=== PATIENT | male | born 1975 | race Caucasian/White ===

== ENCOUNTER → 2018-04-19 13:30 | Outpatient (CLI) | payer BC, SELFPAY ==
--- NOTE | 2018-04-19 13:36 | VDLE_ITS ---
Reason For Study: Swelling RIGHT LEFT GSV is normal. CFV is compressible, spontaneous, phasic, CFV is compressible, spontaneous, phasic, competent, and demonstrates normal competent and demonstrates normal augmentation. augmentation. FV is compressible, spontaneous, phasic, FV is compressible, spontaneous, phasic, competent and demonstrates normal competent and demonstrates normal augmentation. augmentation. POP V is compressible, spontaneous, phasic, POP V is compressible, spontaneous, phasic, competent and demonstrates normal competent and demonstrates normal augmentation. augmentation. T/P Trunk is compressible. T/P Trunk is compressible. PTV is compressible. PTV is compressible. LT PerV is compressible. RT PerV is compressible. Lt SFJ is Competent Rt SFJ is Competent Lt GSV is Incompetent with reflux greater Rt GSV is Competent than 0.5 sec and a diameter of 0.67cm x 0.63cm in the thigh and 0.40cm x 0.37cm in Rt SSV is Competent. the calf Procedure Exam performed in department. Lt SSV is Competent. A preliminary report was called and/or faxed to Ernie Hayes. Interpretation Summary Deep veins of the lower extremities are bilaterally patent and compressible segmentally. There is no evidence of deep vein thrombosis on either side. Valvular competence appears intact within the proximal deep venous systems bilaterally. The greater saphenous veins appear bilaterally patent and compressible segmentally. Sapheno-femoral junctions are bilaterally competent . The right greater saphenous vein appears segmentally competent. The left greater saphenous vein appears segmentally incompetent. Small saphenous veins are patent and competent biaterally. Ordering Physician: ERNIE HAYES Referring Physician: Ernie Hayes Performed By: Victoria Pryor, ANDRZEJ, RVT
--- NOTE | 2018-04-20 16:12 | LEAS ---
Arterial Study - Arterial Study Arterial Study: This is a 43-year-old male with a history of hypertension, hyperlipidemia, and diabetes mellitus. Suspecting the presence of atherosclerotic peripheral arterial occlusive disease, the patient was brought to the noninvasive vascular laboratory at this time for the purpose of bilateral noninvasive lower extremity arterial assessment. Doppler signal assessment was used to evaluate the pulses at ankle level bilaterally. The posterior tibial and dorsalis pedis pulses were triphasic bilaterally. Segmental limb pressures were obtained bilaterally. The right ankle pressure, as determined by posterior tibial pulse, was measured at 152 mmHg. The right ankle pressure, as determined by dorsalis pedis pulse, was measured at 153 mmHg. The right digital pressure was measured at 140 mmHg. The left ankle pressure, as determined by posterior tibial pulse, was measured at 156 mmHg. The left ankle pressure, as determined by dorsalis pedis pulse, was measured at 159 mmHg. The left digital pressure was measured at 128 mmHg. Pulse-volume recordings were obtained bilaterally and segmentally. Waveform amplitudes appeared to be satisfactory at all levels bilaterally, including low thigh, calf, ankle, and digital levels. Resting ankle-brachial indices were calculated bilaterally. The resting right ankle-brachial index was calculated to be 1.16. The resting left ankle-brachial index was calculated to be 1.20. Digital-brachial indices were calculated bilaterally. The right digital-brachial index was calculated to be 1.06. The left digital-brachial index was calculated to be 0.97. Impression: Based upon the findings of this resting noninvasive lower extremity arterial study, there is no evidence of significant atherosclerotic peripheral arterial occlusive disease in the lower extremities bilaterally. Triphasic waveforms were noted at ankle level bilaterally. Resting ankle-brachial indices were bilaterally normal. Digital-brachial indices were also normal bilaterally. In summary, this represents a normal resting noninvasive lower extremity arterial study bilaterally.
--- NOTE | 2018-04-20 16:19 | LEAS_ITS ---
Arterial Study - Arterial Study Arterial Study: This is a 43-year-old male with a history of hypertension, hyperlipidemia, and diabetes mellitus. Suspecting the presence of atherosclerotic peripheral arterial occlusive disease, the patient was brought to the noninvasive vascular laboratory at this time for the purpose of bilateral noninvasive lower extremity arterial assessment. Doppler signal assessment was used to evaluate the pulses at ankle level bilaterally. The posterior tibial and dorsalis pedis pulses were triphasic bilaterally. Segmental limb pressures were obtained bilaterally. The right ankle pressure, as determined by posterior tibial pulse, was measured at 152 mmHg. The right ankle pressure, as determined by dorsalis pedis pulse, was measured at 153 mmHg. The right digital pressure was measured at 140 mmHg. The left ankle pressure, as determined by posterior tibial pulse, was measured at 156 mmHg. The left ankle pressure, as determined by dorsalis pedis pulse, was measured at 159 mmHg. The left digital pressure was measured at 128 mmHg. Pulse-volume recordings were obtained bilaterally and segmentally. Waveform amplitudes appeared to be satisfactory at all levels bilaterally, including low thigh, calf, ankle, and digital levels. Resting ankle-brachial indices were calculated bilaterally. The resting right ankle-brachial index was calculated to be 1.16. The resting left ankle- brachial index was calculated to be 1.20. Digital-brachial indices were calculated bilaterally. The right digital- brachial index was calculated to be 1.06. The left digital-brachial index was calculated to be 0.97. Impression: Based upon the findings of this resting noninvasive lower extremity arterial study, there is no evidence of significant atherosclerotic peripheral arterial occlusive disease in the lower extremities bilaterally. Triphasic waveforms were noted at ankle level bilaterally. Resting ankle-brachial indices were bilaterally normal. Digital-brachial indices were also normal bilaterally. In summary, this represents a normal resting noninvasive lower extremity arterial study bilaterally.
== END ==
PROVIDERS: Family Provider Nurse Practitioner; PCP Nurse Practitioner; Visit Provider Nurse Practitioner
DX: I73.9 Peripheral vascular disease, unspecified (principal); R60.0 Localized edema
CPT/HCPCS: 93923; 93970

== ENCOUNTER 2018-08-09 11:00 | Emergency (ER) | payer BC, SELFPAY ==
[2018-08-09 11:01] VITALS: BP 171/113; PULSE 90; RESP 18; TEMP 36.9; O2SAT 98; BMI 43.2
--- NOTE | 2018-08-09 11:18 | EKG12_ITS ---
Test Reason : PALPITATIONS Blood Pressure : / mmHG Vent. Rate : 090 BPM Atrial Rate : 090 BPM P-R Int : 160 ms QRS Dur : 094 ms QT Int : 366 ms P-R-T Axes : 051 039 054 degrees QTc Int : 447 ms Normal sinus rhythm Normal ECG Confirmed by LEONARDO ZUNIGA, PACO ([id number]), nanofabrication specialist ALICE BAIRES ([id number]) on 08/14/2018 12:31:34 PM Referred By: SHARIFA Confirmed By:PACO PATTRESON MD
--- NOTE | 2018-08-09 11:22 | RAD_ITS ---
STUDY: X-RAY CHEST REASON FOR EXAM: Male, 43 years old. Chest pain TECHNIQUE: Single AP portable view of the chest. COMPARISON: None. FINDINGS: The lungs are clear and expanded. There is no demonstrated pleural abnormality. Normal size heart. Normal mediastinum and kaylin. Normal visualized pulmonary arteries. Normal visualized aortic arch and descending thoracic aorta. Normal visualized thoracic spine. Normal visualized ribs, clavicles, and shoulders. There is no demonstrated abnormality of the visualized soft tissue structures of the upper abdomen. RAD/Chest 1 View (Portable) IMPRESSION: Normal x-ray examination of the chest. Electronically Signed: Stefan Abdi DO at 11:43 EDT Tel , Service support ,
[2018-08-09 11:25] VITALS: BP 158/82; PULSE 90; RESP 22; O2SAT 99
[2018-08-09 11:27] VITALS: O2SAT 99
[2018-08-09 11:51] LABS: Absolute Lymphocyte Count 2.34 X10^3/ul (0.83-4.51); Absolute Neutrophil Count 4.5 X10^3/uL (2.0-7.7); Basophil# 0.03 X10^3/uL; Basophil% 0.4 % (0-1); Eosinophils% 2.7 % (0-5); Hematocrit 49.7 % (40-54); Lymphocyte # 2.34 X10^3/ul (4.0); Lymphocyte % 31.3 % (19-41); Mean Corp Hgb Conc 32.2 g/gl (32-36); Mean Corpuscular Hgb 28.5 pg (27.0-32.0); Mean Corpuscular Volume 88.4 fL (80-94); Mean Platelet Vol. 9.8 fl (6.2-12.0); Monocyte# 0.43 X10^3/uL; Monocyte% 5.7 % (0-10); Neutrophil # 4.46 X10^3/uL (2.7-7.7); Neutrophil % 59.6 % (47-70); Platelet Count 224 K/mm3 (150-450); RBC Distribution Width CV 14.9 % (11.6-14.6); RBC Distribution Width SD 48.4 fl (35.1-43.9); Red Blood Count 5.62 M/mm3 (4.6-6.2); White Blood Count 7.5 K/mm3 (4.4-11.0)
--- NOTE | 2018-08-09 11:54 | ED.DCSUM_ITS ---
- ER Visit Summary Date of Service: 08/09/18 Chief Complaint: [] fever body aches palpitations History of Present Illness: The patient is a 43 M [] patient reports to feeling feverish having body aches for the last 24 hours and palpitations, he has had a slight cough minimal runny nose no sore throat no chest or abdominal pain 6 or paresthesias, he has a prior history for palpitations where his heart will race to 170, he has been evaluated for this in the past with extensive management by cardiology including cardiac echo nuclear stress test but sounds like a Holter and other cardiac monitoring studies are all negative. He has no history of A. fib SVT or V. tach he feels that his heart was racing but not to the 170 range, he is eating and drinking well bowel bladder habits are normal he is not been exposed anyone he is on blood pressure medicines otherwise has been feeling fine Physical Examination: [] On exam his vital signs are within normal range he is afebrile his heart rate is 80 he is in no distress head neck chest unremarkable the nose is slightly congested the neck is very supple the lungs are clear the heart tones are regular the abdomen is obese but soft nontender upper lower extremities unremarkable he is moving all 4 extremities his skin is normal his j oints are normal his back is normal his neurologic exam is entirely normal Test Results: [] Emergency Department Course and Treatment: [] EKG shows a sinus rhythm nothing acute, his labs chest x-ray unremarkable on the monitor in the department during his visit he was in a sinus rhythm with no palpitations, he understands his workup was unremarkable he is feeling better, he understands that he needs to follow-up with his outpatient providers for all the above and he is comfortable doing that return for change in symptoms Treatment Plan: [] Disposition: [] Home stable Impression: [] Reported febrile illness, palpitations history of same This note was generated with [employer] dictation software. It may contain incorrect words, spelling, and punctuation that were not noted in review of the chart prior to signing ED Disposition - Plan for ED Patient: Chief Complaint: Palpitations Referrals: Sheryl Kerr NP-C [Primary Care Provider] -
[2018-08-09] MEDS: 0.9% Normal Saline 1,000 ML 999 ML IV (11:58)
[2018-08-09 12:00] LABS: POSITIVE COUNT NO; POSITIVE DIFFERENTIAL NO; POSITIVE MORPHOLOGY NO
[2018-08-09 12:02] VITALS: BP 121/76; PULSE 79; RESP 13; O2SAT 99
[2018-08-09 12:04] LABS: Anion Gap 9 (5-15); BUN 18 mg/dL (7-18); BUN/Creat Ratio 16.4 RATIO (10-20); Calcium,Total 9.3 mg/dL (8.5-10.1); Chloride 102 mmol/L (98-107); EST Glomerular Filtration Rate 78 mL/min (>60); Est Glom Filt Rate - Afr Amer 94 mL/min (>60); Estimated Creatinine Clearance 92.22 ml/min; Glucose 164 mg/dL (74-106); Potassium 3.9 mmol/L (3.5-5.1); Sodium Level 138 mmol/L (136-145)
[2018-08-09 12:24] LABS: Bacteria 0 SEEN /hpf (None Seen); Mucous, Urine 0 SEEN /hpf (<or=2+); Red Blood Cells-Urine 0 SEEN /hpf (0-5); Squamous Epithelial Cells - UA 0 SEEN /hpf (0-5); White Blood Cells 0 SEEN /hpf (0-5)
[2018-08-09 12:26] LABS: Color, Urine Yellow (Yellow); Glucose, Dipstick Normal (Normal); Ketone-Dipstick Negative (Negative); Leukocyte Esterase-Dipstick Negative /ul (Negative); Nitrite-Dipstick Negative (Negative); Occult Blood-Urine Negative /ul (Negative); Protein-Dipstick Negative (Negative); Specific Gravity, Urine 1.015 (1.002-1.030); Urine Bilirubin Dipstick Negative (Negative); Urine Clarity Clear (Clear); Urine Urobilinogen Normal (Normal)
[2018-08-09 13:04] VITALS: BP 165/84; PULSE 73; RESP 14; O2SAT 99
--- NOTE | 2018-08-09 13:48 | ED.DEP ---
ED Disposition - Plan for ED Patient: Chief Complaint: Palpitations Instructions: ED Palpitations Referrals: Sheryl Kerr, ROBERT-C [Primary Care Provider] -
[2018-08-09 13:53] VITALS: BP 130/70; PULSE 73; RESP 14; O2SAT 98
--- NOTE | 2018-08-09 13:54 | ED.RN ---
REVIEWED D/C INSTRUCTIONS, FOLLOW UP CARE, AND S/S THAT WOULD WARRANT A RETURN TO THE ED WITH PT. PT VERBALIZED AN UNDERSTANDING AND DENIES FURTHER QUESTIONS FOR THIS RN. PT SKIN P/W/D, RESP EVEN AND UNLABORED, PT A&O X 3, NO DISTRESS NOTED. PT AMBULATED OUT OF ED, GAIT STEADY.
== END 2018-08-09 13:55 | disposition home or self-care (01) ==
LOC: ED 12:01
PROVIDERS: Emergency Provider Emergency Medicine; Family Provider Nurse Practitioner; PCP Nurse Practitioner
DX: R50.9 Fever, unspecified (principal); R00.2 Palpitations; Z79.82 Long term (current) use of aspirin; Z79.899 Other long term (current) drug therapy
CPT/HCPCS: 71045; 80048; 81001; 84484; 85025; 93005; 96360; 96361; 99284; J7030; A4216

== ENCOUNTER → 2019-01-23 11:15 | Outpatient (CLI) | payer BC, SELFPAY ==
[2018-11-27 16:09] VITALS: BMI 44.7
[2019-01-23 12:03] LABS: Absolute Lymphocyte Count 2.48 X10^3/ul (0.83-4.51); Basophil# 0.03 X10^3/uL; Basophil% 0.3 % (0-1); Eosinophil# 0.17 X10^3/uL; Eosinophils% 1.6 % (0-5); Hematocrit 47.3 % (40-54); Hemoglobin 15.3 g/dl (13.0-16.5); Lymphocyte # 2.48 X10^3/ul (4.0); Lymphocyte % 23.3 % (19-41); Mean Corp Hgb Conc 32.3 g/gl (32-36); Mean Corpuscular Hgb 28.5 pg (27.0-32.0); Mean Corpuscular Volume 88.2 fL (80-94); Mean Platelet Vol. 9.7 fl (6.2-12.0); Monocyte# 0.89 X10^3/uL; Monocyte% 8.4 % (0-10); Neutrophil # 7.03 X10^3/uL (2.7-7.7); Neutrophil % 66.1 % (47-70); Platelet Count 211 K/mm3 (150-450); RBC Distribution Width CV 14.5 % (11.6-14.6); RBC Distribution Width SD 46.5 fl (35.1-43.9); Red Blood Count 5.36 M/mm3 (4.6-6.2); White Blood Count 10.6 K/mm3 (4.4-11.0)
[2019-01-23 12:15] LABS: POSITIVE COUNT NO; POSITIVE DIFFERENTIAL NO; POSITIVE MORPHOLOGY NO
[2019-01-23 12:52] LABS: Anion Gap 7 (5-15); BUN 20 mg/dL (7-18); BUN/Creat Ratio 19.2 RATIO (10-20); Calcium,Total 9.4 mg/dL (8.5-10.1); Chloride 104 mmol/L (98-107); Creatinine, Serum 1.04 mg/dL (0.70-1.30); EST Glomerular Filtration Rate 83 mL/min (>60); Est Glom Filt Rate - Afr Amer 100 mL/min (>60); Glucose 126 mg/dL (74-106); Magnesium 2.1 mg/dL (1.6-2.6); Sodium Level 141 mmol/L (136-145); T4 Total, Thyroxin 10.5 ug/dL (4.5-12.1); Thyroid Stim Hormone (TSH) 0.78 uIU/mL (0.358-3.74)
== END ==
PROVIDERS: Family Provider Nurse Practitioner; PCP Nurse Practitioner; Referring Provider Nurse Practitioner Family; Visit Provider Nurse Practitioner Family
DX: R00.2 Palpitations (principal); R00.0 Tachycardia, unspecified; E03.9 Hypothyroidism, unspecified
CPT/HCPCS: 36415; 80048; 83735; 84436; 84443; 85025

== ENCOUNTER → 2019-01-23 | Outpatient (REF) | payer BC, SELFPAY ==
[2018-11-27 16:09] VITALS: BMI 44.7
== END | disposition home or self-care (01) ==
LOC: CVS 10:45
PROVIDERS: Family Provider Nurse Practitioner; PCP Nurse Practitioner; Referring Provider Internal Medicine Cardiovascular Disease; Visit Provider Internal Medicine Cardiovascular Disease
DX: R00.2 Palpitations (principal); R00.0 Tachycardia, unspecified
CPT/HCPCS: 93270

== ENCOUNTER → 2019-04-10 14:46 | Outpatient (CLI) | payer BC, SELFPAY ==
[2019-04-10 13:53] VITALS: BMI 46.7
[2019-04-10 15:22] LABS: Hematocrit 45.3 % (40-54); Hemoglobin 14.8 g/dl (13.0-16.5); Mean Corp Hgb Conc 32.7 g/gl (32-36); Mean Corpuscular Hgb 28.7 pg (27.0-32.0); Mean Platelet Vol. 9.7 fl (6.2-12.0); Platelet Count 220 K/mm3 (150-450); RBC Distribution Width CV 14.5 % (11.6-14.6); RBC Distribution Width SD 46.4 fl (35.1-43.9); Red Blood Count 5.15 M/mm3 (4.6-6.2)
[2019-04-10 15:31] LABS: Scan Indicated on CBC? Y/N NO
[2019-04-10 15:49] LABS: Anion Gap 8 (5-15); BUN 20 mg/dL (7-18); BUN/Creat Ratio 18.3 RATIO (10-20); Calcium,Total 9.2 mg/dL (8.5-10.1); Chloride 102 mmol/L (98-107); Creatinine, Serum 1.09 mg/dL (0.70-1.30); EST Glomerular Filtration Rate 78 mL/min (>60); Est Glom Filt Rate - Afr Amer 94 mL/min (>60); Glucose 85 mg/dL (74-106); Sodium Level 142 mmol/L (136-145)
== END ==
PROVIDERS: Family Provider Nurse Practitioner; PCP Nurse Practitioner; Referring Provider Internal Medicine Cardiovascular Disease; Visit Provider Internal Medicine Cardiovascular Disease
DX: R00.2 Palpitations (principal)
CPT/HCPCS: 36415; 80048; 85027

== ENCOUNTER 2019-04-16 08:47 | Day surgery (SDC) | payer BC, SELFPAY ==
[2018-11-27 16:09] VITALS: BMI 44.7
[2019-04-10 13:53] VITALS: BMI 46.7
[2019-04-13 08:37] VITALS: BMI 46.7
--- NOTE | 2019-04-16 10:02 | CL.IE_ITS ---
Patient: ALDO RIVERA Study Date: 04/16/2019 Performing: Giancarlo Alvarez MD : [id number] Age: 44 Gender: male PROCEDURES PERFORMED [id number] OF LOOP RECORDER INDICATIONS Palpitations and Dizziness PROCEDURE DETAILS The patient was brought to the Catheterization Lab in the postabsorptive nonsedated state. Infor med consent was obtained prior to the procedure. Local anesthetic was given subcutaneously to the le ft upper chest area with Lidocaine 2%. Incision was made to the left upper chest. ICM Loop Recorder w as inserted. Steri-strips applied to left subclavicular incision. The patient tolerated the procedur e well. Estimated Blood Loss: < 10 mls IMPLANTED / EX-PLANTED DEVICES IMPLANTED DEVICE(S): ICM Loop Recorder - Logistics Technician: [email or web address], Model # Reveal [id number] [id number] , Serial # [id number] DEVICE PARAMETERS CONCLUSIONS / RECOMMENDATIONS Device Conclusions: Successful implantation of a patient activated loop recorder. Device Recommendations: Follow up with Primary Care Physician PROCEDURE MEDICATIONS Versed 1 mg IV Oxygen: 2 L/min via nasal cannula Antibiotic given in appropriate timeframe. Ancef 2 Gm IV @ 04/16/2019 09:38:18 Signed By Giancarlo Alvarez MD On 04/16/2019 10:01:19 Giancarlo Alvarez MD
--- NOTE | 2019-04-16 10:33 | HP.PCM_ITS ---
History and Physical History of Present Illness ALDO RIVERA, is a 44 M who presents to the hospital today for a cardiovascular outpatient follow-up. He has a history of palpitations, diabetes, GERD, obstructive sleep apnea diagnosed on 03/17/2016 with compliant CPAP therapy, gout, hypertension, and thyroid disease. After his office appointment in March 2018 he was started on Cardizem. His atenolol was discontinued due to ongoing fatigue. It was titrated upwards to 240 mg a day due to palpitations. He recently underwent a 30-day event monitor which was negative. At his last visit, the patient has had occasional palpitations which last several minutes to an hour. Unfortunately we did not capture any of these on his 30-day event monitor. He is taking and tolerating his medicines well. He has noted that he gets more palpitations he goes long spells without exercising. He is here for an updated H&P for loop recorder implantation to try and diagnosis palpitations. Since his last visit, the patient has noted several episodes of palpitations, and noted that they are much less when he is exercising and in better shape. He denies any chest pain, shortness of breath, presyncope or syncope. 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 Financial Services Required: No Accompanied by: Is patient in pain?: No Allergies alprazolam [From Xanax] Allergy (Intermediate, Verified 04/10/19 13:59) depression mood changes iodine contrast Allergy (Severe, Uncoded 08/09/18 11:02) Unknown iv contrast Allergy (Severe, Uncoded 08/09/18 11:02) Anaphylaxis Medications aspirin 81 mg tablet,delayed release 81 mg PO QDAY 04/18/18 [History Confirmed 04/10/19] levothyroxine 100 mcg capsule 100 mcg PO QDAY 04/18/18 [History Confirmed 04/10/19] metformin 500 mg tablet 500 mg PO BID tab 04/18/18 [History Confirmed 04/10/19] Furosemide 40 mg PO QDAY PRN 08/09/18 [History Confirmed 04/10/19] esomeprazole magnesium 40 mg capsule,delayed release PO 30 Days #30 cap 10/30/18 [History Confirmed 04/10/19] diltiazem CD 240 mg capsule,extended release 24 hr 240 mg PO DAILY #90 cap 12/29/18 [Rx Confirmed 04/10/19] allopurinol 300 mg tablet 300 mg PO DAILY 04/10/19 [History Confirmed 04/10/19] [facility] Medical History HLD (hyperlipidemia) (Chronic) HTN (hypertension) (Chronic) Palpitations (Chronic) Dyspnea on exertion (Chronic) GERD (gastroesophageal reflux disease) (Acute) Gout (Acute) Polyp of esophagus (Acute) Obstructive sleep apnea (Chronic) Surgical History Polyp of colon (Resolved) Family History Other Colon cancer Social History (Updated 04/10/19 @ 14:24 by Ash Bullock MD) Smoking Status: Never smoker alcohol intake: never substance use type: does not use caffeine: Yes Type: tea Number of servings: 1 ROS Const Const: Positive for other (Is here for updated H&P for loop implant. Heart racing March 27 &); negative for fatigue, weakness, body ache, fever(s), headache(s), chills, frequent falls, night sweats, daytime sleepiness, difficulty sleeping, excessive sweating, weight gain, weight loss, increased appetite, poor appetite or anorexia Eyes Eyes: Negative for blind spots, loss of peripheral vision, transient loss of vision, blurry vision, change in vision, double vision, floaters, tunnel vision or other ENT ENT: Positive for dizziness (when has rapid palpitations); negative for headache(s), hearing loss, tinnitus, Nosebleed/epistaxis, balance problems, post nasal drip, lip swelling, tongue swelling, bleeding gums, hoarseness, neck pain, dry mouth or other Cardio Chest Pain: No Palpitations: Yes (Rapid palps with sweating that wipe me out, gets dizzy with them.) Edema: Bilateral (nonpitting) Muscle aches with walking: None Resp Respiratory: Negative for SOB with activity, SOB at rest, SOB orthopnea\SOB lying down, Cough, Coughing up blood/hemoptysis, chest congestion, pain on inspiration, snoring, stridor, wheezing, crackles, paroxysmal nocturnal dyspnea or other GI GI: Negative nausea, vomiting, heartburn, constipation, belching, bloating, cramping, vomiting blood/hematemesis, bright, red blood in stools, black,tarry stools, loose stools, Difficulty Swallowing or other : Negative for hematuria, frequent nighttime urination/ nocturia, erectile dysfunction or abnormal vaginal bleeding Musc Musc: Negative for muscle aches/ myalgia, muscle weakness, joint pain or balance problems Skin Skin: Negative redness, non-healing lesions, rash, unusual bruising, skin ulcer, wounds, jaundice or other Neuro Neuro: Positive for dizziness (when has rapid palpitations); negative for lightheadedness, near syncope, syncope, orthostatic symptoms, f requent falls, headache(s), weakness, confusion, memory loss, restless legs, blurry vision, double vision, vertigo, seizures, lack of coordination or other Zeferino Hematologic/Lymphatic: Negative for easy bleeding, easy bruising, enlarged lymph nodes or other Endo Endo: Negative for fatigue, cold intolerance, heat intolerance, excessive sweating, flushing, increased thirst/drinking, increased hunger, hair loss, hair growth or other Psych Psych: Negative for anxiety, depression, thoughts of harming anyone, thoughts of harming yourself, visual hallucinations, panic attacks or audible hallucinations Allergy Allergy/Immunology: Negative for throat swelling, Negative for tongue swelling, Negative for hives, Negative for rash, Negative for lip swelling Cardiology Exam Const Appearance: cooperative, healthy appearing and no acute distress Nutritional Appearance: well nourished Orientation: alert, oriented x3 and oriented to person Head Head: normal to inspection, normocephalic and atraumatic Nose: external nose normal Face and Sinus: face symmetric Mouth: oral mucosae normal Eyes General: appearance normal, both eyes and all related structures Eyelids: eyelids normal Conjunctivae: conjunctivae normal Pupils: PERRL and normal by confrontation EOM: EOM intact bilaterally Neck Neck: normal visual inspection and full ROM Carotids: normal carotid upstroke Chest Chest inspection: normal inspection of the chest Auscultation: Bilateral: Clear to Auscultation Cardio Palpation: normal PMI Rate: regular rate Rhythm: regular rhythm Heart sounds: S1 normal and S2 normal GI GI: normal to inspection, no hepatosplenomegaly and bowel sounds present Neuro General: alert, awake, oriented x3, CN's II-XI intact bilaterally and moves all extremities Skin Skin: no rashes or lesions noted Extremities Pulses: Normal: Right Femoral Pulse, Left Femoral Pulse, Right Dorsalis Pedis Pulse, Left Dorsalis Pedis Pulse, Right Posterior Tibial Pulse, Left Posterior Tibial Pulse, Right Radial Pulse, Left Radial Pulse Lower Extremity Edema: None: Bilateral Psych Psychological: normal affect Assessment & Plan 1. Palpitations R00.2 Plan 1. Palpitations: I recommended the patient continue his current medication is of diltiazem CD 240 mg p.o. daily as well as Lasix. In addition he is going to undergo a loop recorder implantation to try and get a diagnosis as to the source of his palpitations. I thoroughly explained to the patient and his significant other details regarding the loop recorder implantation, and all questions have been answered. Of also encouraged him to continue using his CPAP machine, and to ensure that his hypothyroidism is adequately controlled as this may promote palpitations as well. 2. Return office in 6-months. This note was generated using a voice recognition system and there may be incorrect words, spelling or punctuation that were not noted when reviewing the office note prior to saving. Orders 12 Lead EKG performed by BMS Today Patient seen and evaluated by me today. Agreeable to having an implantable loop recorder. Risk benefits alternatives presented to the patient who understands and agrees to proceed.
== END 2019-04-16 11:15 | disposition home or self-care (01) ==
PROVIDERS: Family Provider Nurse Practitioner; PCP Nurse Practitioner; Referring Provider Internal Medicine Cardiovascular Disease; Visit Provider Internal Medicine Cardiovascular Disease
DX: R00.2 Palpitations (principal); R42 Dizziness and giddiness; I10 Essential (primary) hypertension; E78.5 Hyperlipidemia, unspecified; K21.9 Gastro-esophageal reflux disease without esophagitis; G47.33 Obstructive sleep apnea (adult) (pediatric); M10.9 Gout, unspecified; E03.9 Hypothyroidism, unspecified; E11.9 Type 2 diabetes mellitus without complications; Z79.84 Long term (current) use of oral hypoglycemic drugs; Z79.82 Long term (current) use of aspirin; Z79.899 Other long term (current) drug therapy
CPT/HCPCS: 33285; 99152; J7040

== ENCOUNTER 2019-04-16 19:50 | Emergency (ER) | payer BC, SELFPAY ==
[2019-04-13 08:37] VITALS: BMI 46.7
[2019-04-16 19:54] VITALS: BP 159/87; PULSE 90; RESP 17; TEMP 36.7; O2SAT 96; BMI 101.4
--- NOTE | 2019-04-16 19:56 | EKG12_ITS ---
Test Reason : CP Blood Pressure : / mmHG Vent. Rate : 087 BPM Atrial Rate : 087 BPM P-R Int : 146 ms QRS Dur : 090 ms QT Int : 380 ms P-R-T Axes : 047 032 036 degrees QTc Int : 457 ms Normal sinus rhythm Normal ECG Confirmed by LEONARDO ZUNIGA, PACO ([id number]), scientific publications editor KAITLYN LACEY ([id number]) on 04/18/2019 7:57:42 AM Referred By: Giancarlo Alvarez Confirmed By:PACO PATTERSON MD
--- NOTE | 2019-04-16 20:07 | RAD_ITS ---
STUDY: X-RAY CHEST REASON FOR EXAM: Male, 44 years old. Chest pain TECHNIQUE: Single AP portable view of the chest. COMPARISON: August 09, 2018. FINDINGS: The lungs are clear and expanded. There is no demonstrated pleural abnormality. Normal size heart. Normal mediastinum and kaylin. Normal visualized pulmonary arteries. Normal visualized aortic arch and descending thoracic aorta. Normal visualized thoracic spine. Normal visualized ribs, clavicles, and shoulders. There is no demonstrated abnormality of the visualized soft tissue structures of the upper abdomen. RAD/Chest 1 View (Portable) IMPRESSION: Normal x-ray examination of the chest. Electronically Signed: Vic Bradshaw MD at 20:35 EDT , Service support ,
[2019-04-16] MEDS: Morphine 4 MG/ML Syringe IV (20:27)
--- NOTE | 2019-04-16 20:49 | RAD_ITS ---
STUDY: X-RAY CHEST REASON FOR EXAM: Male, 44 years old. Pain. TECHNIQUE: Single lateral view of the chest. COMPARISON: None. FINDINGS: There is implantable cardiac rhythm monitoring device in the subcutaneous soft tissues of the anterior chest. The lungs are clear and expanded. There is no demonstrated pleural abnormality. Normal size heart. Normal mediastinum and kaylin. Normal visualized pulmonary arteries. Normal visualized aortic arch and descending thoracic aorta. There are diffuse degenerative changes of the visualized thoracic spine. Normal visualized ribs, clavicles, and shoulders. There is no demonstrated abnormality of the visualized soft tissue structures of the upper abdomen. RAD/Chest 1 View IMPRESSION: Monitoring device in the soft tissues. No pneumothorax seen. Electronically Signed: Vic Bradshaw MD at 21:14 EDT , Service support ,
[2019-04-16 20:50] LABS: Absolute Lymphocyte Count 3.04 X10^3/ul (0.83-4.51); Absolute Neutrophil Count 5.7 X10^3/uL (2.0-7.7); Basophil# 0.02 X10^3/uL; Basophil% 0.2 % (0-1); Eosinophil# 0.31 X10^3/uL; Eosinophils% 3.1 % (0-5); Hematocrit 46.6 % (40-54); Hemoglobin 15.3 g/dl (13.0-16.5); Lymphocyte # 3.04 X10^3/ul (4.0); Lymphocyte % 30.1 % (19-41); Mean Corp Hgb Conc 32.8 g/gl (32-36); Mean Corpuscular Hgb 28.9 pg (27.0-32.0); Mean Corpuscular Volume 88.1 fL (80-94); Mean Platelet Vol. 10.2 fl (6.2-12.0); Monocyte# 1.01 X10^3/uL; Neutrophil # 5.67 X10^3/uL (2.7-7.7); Neutrophil % 56.2 % (47-70); Platelet Count 192 K/mm3 (150-450); RBC Distribution Width CV 14.8 % (11.6-14.6); RBC Distribution Width SD 47.3 fl (35.1-43.9); Red Blood Count 5.29 M/mm3 (4.6-6.2); White Blood Count 10.1 K/mm3 (4.4-11.0)
[2019-04-16 20:51] LABS: POSITIVE COUNT NO; POSITIVE DIFFERENTIAL NO; POSITIVE MORPHOLOGY NO
[2019-04-16 20:52] LABS: Anion Gap 4 (5-15); BUN 19 mg/dL (7-18); BUN/Creat Ratio 19.4 RATIO (10-20); Calcium,Total 9.2 mg/dL (8.5-10.1); Chloride 104 mmol/L (98-107); Creatinine, Serum 0.98 mg/dL (0.70-1.30); EST Glomerular Filtration Rate 89 mL/min (>60); Est Glom Filt Rate - Afr Amer 107 mL/min (>60); Estimated Creatinine Clearance 102.45 ml/min; Glucose 117 mg/dL (74-106); Sodium Level 138 mmol/L (136-145)
[2019-04-16 21:02] VITALS: PULSE 81; RESP 17; O2SAT 99
--- NOTE | 2019-04-16 21:32 | ED.DCSUM_ITS ---
- ER Visit Summary Date of Service: 04/16/19 Chief Complaint: Chest pain] History of Present Illness: The patient is a 44 M presents to the emergency department with chest pain. The patient had a loop recorder implanted by Dr. Alvarez today. States he had some mild pain after the procedure. Shortly thereaf ter, he began have some worsening pain. He states it hurts to touch. It also hurts to move his breaths. He called Dr. Alvarez and was referred into the emergency department. He is otherwise been in his normal state of health. Physical Examination: Vital signs reviewed General: Well-nourished, well-developed Head: Normocephalic, atraumatic Eyes: Pupils equal and reactive, extraocular muscles intact Neck, supple, no lymphadenopathy Heart: Regular rate and rhythm Respiratory: No distress, clear bilaterally, anterior chest wall tenderness at his implantation site, no crepitus Abdomen: Soft, nontender, nondistended, no peritoneal signs Back: Nontender Extremities: Nontender, no edema, no cords Skin: Normal color no rash Neuro: Alert and oriented, no focal or lateralizing deficits Test Results: [] Emergency Department Course and Treatment: I had already discussed the patient with Dr. Alvarez prior to his arrival. On arrival, the patient was evaluated by Dr. Vieyra. His EKG was unremarkable. Chest x-ray shows no pneumothorax. Labs are unremarkable. With analgesics, his pain was improved. At this point, I do feel this is likely postprocedural pain. I do not suspect a dangerous process. I do feel that he is safe for outpatient therapy. Patient is going to follow- up with cardiology tomorrow. Treatment Plan: [] Disposition: Discharge Impression: 1. Chest wall pain status post implantation of loop recorder This note was generated with [employer] software. It may contain incorrect words, spelling, and punctuation that were not noted in review of the chart prior to signing ED Disposition - Plan for ED Patient: Instructions: CHEST PAIN, NonCardiac Prescriptions: Hydrocodone Bitart/Apap 5-325 [[address] 5MG-325MG] 1 tab PO Q4H PRN PRN 1 Days #4 tab PRN Reason: Pain Prescription Printed Referrals: Sheryl Kerr NP-C [Primary Care Provider] -
[2019-04-16 21:57] VITALS: BP 144/71; PULSE 88; RESP 17; O2SAT 93
== END 2019-04-16 22:17 | disposition home or self-care (01) ==
LOC: ED 20:35
PROVIDERS: Emergency Provider Emergency Medicine; Family Provider Nurse Practitioner; PCP Nurse Practitioner
DX: R07.89 Other chest pain (principal); Z95.818 Presence of other cardiac implants and grafts; I10 Essential (primary) hypertension; Z79.82 Long term (current) use of aspirin; Z79.899 Other long term (current) drug therapy
CPT/HCPCS: 71045; 80048; 84484; 85025; 93005; 96374; 99284; A4216

== ENCOUNTER → 2019-06-05 22:37 | Outpatient (CLI) | payer BC, SELFPAY ==
[2019-06-05 18:31] VITALS: BMI 44.0
[2019-06-05 22:52] LABS: Absolute Neutrophil Count 6.6 X10^3/uL (2.0-7.7); Basophil# 0.05 X10^3/uL; Basophil% 0.5 % (0-1); Eosinophil# 0.14 X10^3/uL; Eosinophils% 1.4 % (0-5); Hematocrit 47.3 % (40-54); Hemoglobin 15.7 g/dL (13.0-16.5); Lymphocyte % 24.1 % (19-41); Mean Corp Hgb Conc 33.2 g/dL (32-36); Mean Corpuscular Hgb 29.2 pg (27.0-32.0); Mean Corpuscular Volume 88.1 fL (80-94); Mean Platelet Vol. 10.2 fl (6.2-12.0); Monocyte# 0.72 X10^3/uL; Monocyte% 7.2 % (0-10); NRBC Flagged by Analyzer 0 % (0-5); Neutrophil # 6.62 X10^3/uL (2.7-7.7); Neutrophil % 66.6 % (47-70); Platelet Count 248 K/mm3 (150-450); RBC Distribution Width CV 14.2 % (11.6-14.6); RBC Distribution Width SD 45.2 fl (35.1-43.9); Red Blood Count 5.37 M/mm3 (4.6-6.2)
[2019-06-05 23:14] LABS: AST(SGOT) 21 U/L (15-37); Alanine Aminotransfer ALT/SGPT 36 U/L (16-61); Albumin, Serum 4.4 g/dL (3.2-5.0); Alkaline Phosphatase 78 U/L (45-117); Anion Gap 7 (5-15); BUN 18 mg/dL (7-18); BUN/Creat Ratio 17.1 RATIO (10-20); Calcium,Total 9.6 mg/dL (8.5-10.1); Chloride 101 mmol/L (98-107); Cholesterol 205 mg/dL (200); Creatinine, Serum 1.05 mg/dL (0.70-1.30); EST Glomerular Filtration Rate 81 mL/min (>60); Est Glom Filt Rate - Afr Amer 99 mL/min (>60); Globulin 4.2 g/dL (2.2-4.2); Glucose 89 mg/dL (74-106); High Density Lipoprotein 37 mg/dL; Potassium 4.1 mmol/L (3.5-5.1); Protein, Total 8.6 g/dL (6.4-8.2); Sodium Level 136 mmol/L (136-145); Thyroid Stim Hormone (TSH) 0.79 uIU/mL (0.358-3.74); Triglycerides 121 mg/dL; Uric Acid 6.2 mg/dL (3.5-7.2); Very Low Density Lipoprotein 24 mg/dL (5-40)
== END ==
PROVIDERS: Family Provider Nurse Practitioner; PCP Nurse Practitioner; Visit Provider Nurse Practitioner
DX: E03.9 Hypothyroidism, unspecified (principal); E78.5 Hyperlipidemia, unspecified; I10 Essential (primary) hypertension; M10.9 Gout, unspecified
CPT/HCPCS: 80053; 80061; 84443; 84550; 85025

== ENCOUNTER → 2019-07-04 23:58 | Outpatient (CLI) | payer BC, SELFPAY ==
[2019-07-04 18:18] VITALS: BMI 43.4
== END ==
PROVIDERS: Family Provider Nurse Practitioner; PCP Nurse Practitioner; Referring Provider Nurse Practitioner; Visit Provider Nurse Practitioner
DX: N30.01 Acute cystitis with hematuria (principal); R35.0 Frequency of micturition
CPT/HCPCS: 87086

== ENCOUNTER → 2019-08-01 23:11 | Outpatient (CLI) | payer BC, SELFPAY ==
[2019-08-01 18:18] VITALS: BMI 43.4
== END ==
PROVIDERS: Family Provider Nurse Practitioner; PCP Nurse Practitioner; Referring Provider Nurse Practitioner; Visit Provider Nurse Practitioner
DX: R35.0 Frequency of micturition (principal); R10.9 Unspecified abdominal pain
CPT/HCPCS: 87086

== ENCOUNTER → 2020-02-15 09:10 | Outpatient (CLI) | payer BC, SELFPAY ==
[2019-10-22 17:17] VITALS: BMI 44.0
--- NOTE | 2020-02-15 09:12 | MRI_ITS ---
STUDY: MRA OF THE HEAD WITHOUT CONTRAST REASON FOR EXAM: Male, 45 years old. New onset of severe H/A''s, concern for aneurysm TECHNIQUE: 3-D [id number] (TOF) imaging was performed with MIPs. The study was performed unenhanced. COMPARISON: None. FINDINGS: Normal bilateral petrous carotid arteries. Normal right cavernous carotid artery with a normal supraclinoid bifurcation. Normal left cavernous carotid artery with a normal supraclinoid bifurcation. Normal right A1 segments of the anterior cerebral artery. Normal left A1 segments of the anterior cerebral artery. Normal intact anterior communicating artery (ACOM). Normal bilateral A2 segments of the anterior cerebral arteries. Normal right M1 and M2 segments of the middle cerebral arteries, with a normal M1 bifurcation. Normal left M1 and M2 segments of the middle cerebral arteries, with a normal M1 bifurcation. Normal right posterior communicating artery (PCOM). Normal left posterior communicating artery (PCOM). Normal bilateral vertebral arteries. Normal basilar artery with a normal basilar bifurcation. The visualized bilateral superior cerebellar (SCA) arteries are normal. Normal bilateral P1, P2 and visualized P3 segments of the posterior cerebral arteries. There is no demonstrated aneurysm of the [place]. There is no major vessel occlusion or hemodynamically significant stenosis. There is no demonstrated abnormality of the visualized brain. MRI/MRA Head ONLY without Contrast IMPRESSION: Normal MRA of the head Electronically Signed: Hawa Bansal, at 10:25 EDT Tel , Service support ,
--- NOTE | 2020-02-15 09:15 | RAD_ITS ---
STUDY: X-RAY - ORBITS REASON FOR EXAM: Male, 45 years old. CLEARANCE FOR MRI TECHNIQUE: 2 view(s) of the orbits were obtained. COMPARISON: None. FINDINGS: Normal bilateral orbits without a metallic orbital foreign body. Normal visualized facial bones. Normal paranasal sinuses. The soft tissue structures are unremarkable. RAD/Orbits for Foreign Body IMPRESSION: No demonstrated metallic orbital foreign body. The patient is cleared for an MRI examination. Electronically Signed: Husam Ruiz, at 9:47 EDT , Service support ,
== END ==
LOC: MRI 09:12
PROVIDERS: PCP Nurse Practitioner; Referring Provider Nurse Practitioner; Visit Provider Nurse Practitioner
DX: H53.8 Other visual disturbances (principal); G43.009 Migraine without aura, not intractable, without status migrainosus
CPT/HCPCS: 70030; 70544

== ENCOUNTER → 2020-07-03 | Outpatient (CLI) | payer BC, SELFPAY ==
[2020-07-03 15:22] VITALS: BMI 44.0
[2020-07-03 22:24] LABS: Absolute Lymphocyte Count 2.59 X10^3/uL (0.83-4.51); Absolute Neutrophil Count 5.9 X10^3/uL (2.0-7.7); Basophil# 0.06 X10^3/uL; Basophil% 0.6 % (0-1); Eosinophil# 0.13 X10^3/uL; Eosinophils% 1.4 % (0-5); Hematocrit 47.2 % (40-54); Hemoglobin 15.1 g/dL (13.0-16.5); Lymphocyte # 2.59 X10^3/ul (4.0); Lymphocyte % 27.7 % (19-41); Mean Corpuscular Hgb 28.6 pg (27.0-32.0); Mean Corpuscular Volume 89.4 fL (80-94); Mean Platelet Vol. 10.6 fl (6.2-12.0); Monocyte# 0.61 X10^3/uL; Monocyte% 6.5 % (0-10); NRBC Flagged by Analyzer 0 % (0-5); Neutrophil # 5.92 X10^3/uL (2.7-7.7); Neutrophil % 63.5 % (47-70); Platelet Count 250 K/mm3 (150-450); RBC Distribution Width CV 14.3 % (11.6-14.6); RBC Distribution Width SD 46.9 fl (35.1-43.9); Red Blood Count 5.28 M/mm3 (4.6-6.2); White Blood Count 9.3 K/mm3 (4.4-11.0)
[2020-07-03 22:42] LABS: ALB/GLOB Ratio 1.1 RATIO (0.9-2.4); AST(SGOT) 20 U/L (15-37); Alanine Aminotransfer ALT/SGPT 35 U/L (16-61); Albumin, Serum 4.1 g/dL (3.2-5.0); Alkaline Phosphatase 71 U/L (45-117); Anion Gap 6 (5-15); BUN 20 mg/dL (7-18); BUN/Creat Ratio 18.5 RATIO (10-20); Calcium,Total 9.7 mg/dL (8.5-10.1); Chloride 105 mmol/L (98-107); Cholesterol 207 mg/dL (200); Creatinine, Serum 1.08 mg/dL (0.70-1.30); EST Glomerular Filtration Rate 78 mL/min (>60); Est Glom Filt Rate - Afr Amer 95 mL/min (>60); Globulin 3.9 g/dL (2.2-4.2); Glucose 124 mg/dL (74-106); High Density Lipoprotein 41 mg/dL; Potassium 3.9 mmol/L (3.5-5.1); Sodium Level 140 mmol/L (136-145); Thyroid Stim Hormone (TSH) 1.88 uIU/mL (0.358-3.74); Triglycerides 151 mg/dL; Uric Acid 7.8 mg/dL (3.5-7.2); Very Low Density Lipoprotein 30 mg/dL (5-40)
== END | disposition home or self-care (01) ==
LOC: OLS.AHF 22:13 → LABSPEC 07-04 08:40
PROVIDERS: PCP Nurse Practitioner; Referring Provider Nurse Practitioner; Visit Provider Nurse Practitioner
DX: E78.5 Hyperlipidemia, unspecified (principal); M10.9 Gout, unspecified; I10 Essential (primary) hypertension; E03.9 Hypothyroidism, unspecified
CPT/HCPCS: 80053; 80061; 84443; 84550; 85025

== ENCOUNTER → 2021-07-07 | Outpatient (CLI) | payer BC, SELFPAY ==
[2021-07-07 22:10] LABS: Absolute Lymphocyte Count 2.25 X10^3/uL (0.83-4.51); Absolute Neutrophil Count 9.2 X10^3/uL (2.0-7.7); Basophil# 0.04 X10^3/uL; Basophil% 0.3 % (0-1); Eosinophil# 0.01 X10^3/uL; Eosinophils% 0.1 % (0-5); Hematocrit 49.7 % (40-54); Hemoglobin 16.2 g/dL (13.0-16.5); Lymphocyte # 2.25 X10^3/ul (0.83-4.51); Lymphocyte % 18.5 % (19-41); Mean Corp Hgb Conc 32.6 g/dL (32-36); Mean Corpuscular Volume 88.9 fL (80-94); Mean Platelet Vol. 10.2 fl (6.2-12.0); Monocyte# 0.57 X10^3/uL; Monocyte% 4.7 % (0-10); NRBC Flagged by Analyzer 0 % (0-5); Neutrophil # 9.22 X10^3/uL (2.7-7.7); Neutrophil % 75.8 % (47-70); Platelet Count 261 K/mm3 (150-450); RBC Distribution Width CV 14.2 % (11.6-14.6); RBC Distribution Width SD 45.3 fl (35.1-43.9); Red Blood Count 5.59 M/mm3 (4.6-6.2); White Blood Count 12.2 K/mm3 (4.4-11.0)
[2021-07-07 22:32] LABS: AST(SGOT) 17 U/L (15-37); Alanine Aminotransfer ALT/SGPT 38 U/L (16-61); Albumin, Serum 4.2 g/dL (3.2-5.0); Alkaline Phosphatase 71 U/L (45-117); Anion Gap 7 (5-15); BUN 21 mg/dL (7-18); BUN/Creat Ratio 22.1 RATIO (10-20); Calcium,Total 9.8 mg/dL (8.5-10.1); Chloride 105 mmol/L (98-107); Cholesterol 249 mg/dL (200); Creatinine, Serum 0.95 mg/dL (0.70-1.30); EST Glomerular Filtration Rate 91 mL/min (>60); Est Glom Filt Rate - Afr Amer 110 mL/min (>60); Globulin 4.4 g/dL (2.2-4.2); Glucose 107 mg/dL (74-106); High Density Lipoprotein 49 mg/dL; Potassium 4.3 mmol/L (3.5-5.1); Protein, Total 8.6 g/dL (6.4-8.2); Sodium Level 138 mmol/L (136-145); Thyroid Stim Hormone (TSH) 0.54 uIU/mL (0.358-3.74); Triglycerides 107 mg/dL; Uric Acid 5.9 mg/dL (3.5-7.2); Very Low Density Lipoprotein 21 mg/dL (5-40)
[2021-07-07 22:43] LABS: Hemoglobin A1c 5.6 % (3.8-5.6)
[2021-07-13 12:08] LABS: Testosterone, Free 10.42 ng/dL (5.00-21.00)
[2021-07-14 18:36] LABS: Testosterone, % Free 3.12 % (1.50-4.20); Testosterone, Total 334 ng/dL (264-916)
== END | disposition home or self-care (01) ==
PROVIDERS: PCP Nurse Practitioner; Visit Provider Nurse Practitioner
DX: I10 Essential (primary) hypertension (principal); E03.9 Hypothyroidism, unspecified; E11.9 Type 2 diabetes mellitus without complications; M10.9 Gout, unspecified; R79.89 Other specified abnormal findings of blood chemistry
CPT/HCPCS: 80053; 80061; 83036; 84402; 84403; 84443; 84550; 85025

== ENCOUNTER 2021-07-17 19:30 | Emergency (ER) | payer BC, SELFPAY ==
[2021-07-17 19:31] VITALS: BP 180/104; PULSE 98; RESP 18; TEMP 36.1; O2SAT 99; BMI 47.0
--- NOTE | 2021-07-17 20:40 | EKG12_ITS ---
Test Reason : CP Blood Pressure : / mmHG Vent. Rate : 083 BPM Atrial Rate : 083 BPM P-R Int : 154 ms QRS Dur : 092 ms QT Int : 398 ms P-R-T Axes : 054 031 012 degrees QTc Int : 467 ms Normal sinus rhythm Normal ECG Confirmed by LEONARDO ZUNIGA, PACO ([id number]), supervising editor trailer MATHEW CORRIGAN ([id number]) on 07/20/2021 11:39:20 AM Referred By: MARY Confirmed By:PACO PATTERSON MD
--- NOTE | 2021-07-17 20:41 | ED.VIS.CHEST ---
HPI History of Present Illness Chief Complaint: Chest Pain Detail of Chief Complaint: Chest pain that started around 4:30 PM Informant: patient Onset/Context/Timing Current Severity: 0/10 Narrative Narrative: Patient presents to the emergency department chief complaint of chest discomfort that started while sitting at a desk approximately 4:30 PM. Patient describes a pressure that radiates into his jaw and arm. No nausea or vomiting or shortness of breath associated with it. He is never had discomfort like this before. Patient states initially the pain lasted about an hour and then resolved and then its been coming and going since that time lasting only seconds. Patient denies recent travel or surgery. No family history of heart disease at a young age. Patient had a stress test he thinks about 3 years ago that was normal. He is never had a heart cath. Patient does have history of some tachycardia and has a loop recorder currently. Patient also has history of hypertension. Prior Similar Symptoms: No [facility] Medical History (Updated 07/17/21 @ 22:[address] Migue Reza, DO) Blurry vision, bilateral Dyspnea on exertion GERD (gastroesophageal reflux disease) Gout HLD (hyperlipidemia) HTN (hypertension) Hypothyroidism Migraine headache without aura Migraine without aura Multiple aneurysms of cerebral artery Nausea Obstructive sleep apnea Palpitations Pharyngitis Polyp of esophagus Home Medications esomeprazole magnesium 40 mg capsule,delayed release 40 mg PO DAILY 30 Days #30 cap 10/30/18 [History Last Taken Unknown] allopurinol 300 mg tablet 300 mg PO DAILY #90 tab 07/07/21 [Rx Last Taken Unknown] furosemide 40 mg tablet 40 mg PO QDAY PRN #90 tab 07/07/21 [Rx Last Taken Unknown] levothyroxine 100 mcg tablet 100 mcg PO DAILY #90 tab 07/07/21 [Rx Last Taken Unknown] metformin 500 mg tablet 500 mg PO BID #180 tab 07/07/21 [Rx Last Taken Unknown] amoxicillin 875 mg-potassium clavulanate 125 mg tablet 1 tab PO BID #20 tab 07/17/21 [Rx Last Taken Unknown] Allergy/AdvReac Type Severity Reaction Status Date / Time alprazolam [From Xanax] Allergy Intermediate depression Verified 07/17/21 21:21 mood changes iodine contrast Allergy Severe Unknown Uncoded 07/17/21 21:21 iv contrast Allergy Severe Anaphylaxis Uncoded 07/17/21 21:21 Family History Uncle Aneurysm cousins Mother Aneurysm Other Colon cancer Surgical History Polyp of colon Status post placement of implantable loop recorder (04/16/19) Social History (Updated 12/02/20 @ 12:10 by Sheryl Kerr NP, [employer]) Smoking Status: Current every day smoker tobacco type: smokeless tobacco alcohol intake: never substance use type: does not use caffeine: Yes Type: tea Number of servings: 1 ROS ROS ED Review of Systems ROS Unobtainable: other Constitutional Constitutional ED: Reports lethargy; Denies chills, fever(s), sweats or weight loss Eyes Eyes: Denies blurry vision, change in vision or diplopia ENT ENT ED: Denies rhinorrhea or sore throat Cardiovascular Cardiovascular: Reports chest pain; Denies orthopnea, palpitations or racing heartbeat Respiratory/Chest Respiratory/Chest: Reports dyspnea and dyspnea on exertion; Denies cough, orthopnea or sputum Gastrointestinal Gastrointestinal: Denies abdominal pain, diarrhea, nausea or vomiting Genitourinary Genitourinary ED: Denies dysuria, hematuria or urinary frequency Musculoskeletal Musculoskeletal: Denies arthralgias, back pain, myalgias or neck pain Integumentary Denies abscess, Abrasions or rash Neurologic Neurologic: Denies headache(s) or weakness Psychiatric Psychiatric: Denies anxiety, depression or suicidal thoughts Endocrine Endocrinology: Denies polydipsia, polyphagia or polyuria Hematologic/Lymphatic Hematologic/Lymphatic: Denies easy bleeding, easy bruising or lymphadenopathy Allergic/Immunologic Allergic/Immunologic ED: Denies mouth swelling, tongue swelling or urticaria EXAM Physical Exam Const Vital Signs: 07/17/21 19:31 07/17/21 21:20 07/17/21 21:23 Temperature 97 F L Temperature Source Temporal Pulse Rate 98 Respiratory Rate 18 Respiratory Effort Normal Non-Labored Blood Pressure 180/104 H Blood Pressure Mean 129 Pulse Ox 99 Oxygen Delivery Method Room Air Room Air 07/17/21 21:24 Temperature Temperature Source Pulse Rate 70 Respiratory Rate 20 H Respiratory Effort Blood Pressure 148/90 H Blood Pressure Mean 109 Pulse Ox 97 Oxygen Delivery Method Room Air Positive well nourished and well developed General Appearance ED: well developed and NAD HEENT Reports TM's clear and moist mucous membranes normocephalic and atraumatic; Negative for trauma or tenderness Tympanic Membrane ED: Yes TM's clear Eyes PERRL and EOMs intact bilaterally General Eye ED: Negative for pale conjunctiva or scleral icterus Neck no lymphadenopathy, supple and no JVD General: Negative for tenderness Chest Wall inspection of chest normal and palpation of chest normal Chest: Negative for tenderness Resp normal respiratory effort and clear to auscultation bilaterally Effort and Inspection: Negative for respiratory distress or pain with movement Auscultation: Negative for rhonchi, wheezes or diminished lung sounds Cardio regular rate, regular rhythm, S1 normal heart sound, S2 normal heart sound and no murmurs Peripheral Pulses: pulses 2+ throughout GI normal to inspection, nondistended, normoactive bowel sounds, soft to palpation, non-tender, non-distended and no masses Back/Spine no CVA tenderness and no thoracic nor lumbar tenderness Extremity normal to inspection General Extremety ED: Negative for edema General Extremity: Negative for edema Neuro oriented x3, CN's II-XII intact bilaterally, no sensory deficits noted and gait normal Sensorium / Orientation: awake, alert, oriented to person, oriented to place and oriented to time Motor Exam: strength 5/5 throughout and strength abnormal Psych mental status grossly normal Skin no rashes or lesions noted and no wounds Heart Score History: Slightly/Non-Suspicious ECG: Normal Age: >45 - <65 years Risk Factors: 1 or 2 Risk Factors Troponin: </= Normal Limit Score: 2 MDM MDM MDM Narrative Medical decision making narrative: IV line established on arrival. Patient was placed on a school bus monitor. Patient received aspirin. Patient had no further chest discomfort while in the department. His work-up in the department is normal. His heart score is a 2. I feel patient is low risk for acute coronary syndrome. I discussed obtaining a delta troponin although he had had pain for over 4 hours on arrival to the emergency department and his high-sensitivity troponin was normal. Patient does not want to wait the 2 hours and would prefer to go home. Patient advised to return if worsening pain, increasing shortness of breath, exertional dyspnea, or conditions worsen anyway. Lab Data Attestation: I reviewed the patient's lab results. Labs: Laboratory Results - last 24 hr 07/17/21 07/17/21 21:00 21:00 WBC 9.1 RBC 5.12 Hgb 14.9 Hct 45.7 MCV 89.3 MCH 29.1 MCHC 32.6 RDW Std Deviation 46.4 H RDW Coeff of Tali 14.3 Plt Count 212 MPV 10.1 Immature Gran % (Auto) 0.400 Neut % (Auto) 54.7 Lymph % (Auto) 32.1 Weber % (Auto) 9.8 Eos % (Auto) 2.6 Baso % (Auto) 0.4 Absolute Neuts (auto) 5.0 Absolute Lymphs (auto) 2.92 Nucleated RBC % 0 Sodium 140 Potassium 3.8 Chloride 108 H Carbon Dioxide 28.0 Anion Gap 4 L BUN 22 H Creatinine 0.95 Estim Creat Clear Calc 103.48 Est GFR (MDRD) Af Amer 109 Est GFR (MDRD) Non-Af 90 BUN/Creatinine Ratio 23.1 H Glucose 111 H Calcium 9.6 Troponin I High Sens 6 Radiography Chest X-Ray - ED: 1 View Diagnostic Testing: Radiology Impression Chest X-Ray 07/17/21 21:05 IMPRESSION: No acute radiographic abnormalities. Electronically Signed: Brian Waite MD at 21:51 EDT Tel , Service support , 1 view chest x-ray obtained interpreted by myself as no acute disease process. EKG Initial EKG: Attestation: I personally reviewed and interpreted this EKG as follows: Comments: Sinus rhythm with a ventricular rate of 83 bpm with no acute ST segment changes Discharge Plan Triage Chief Complaint: Chest Pain ED Provider: Migue Reza Dx/Rx/DC Orders Clinical Impression: Chest pain Instructions: ED Chest Pain, Uncertain Cause Prescriptions: No Action esomeprazole magnesium 40 mg capsule,delayed release(DR/EC) 40 mg PO DAILY 30 Days Qty: 30 RF: 0 allopurinol 300 mg tablet 300 mg PO DAILY Qty: 90 RF: 3 furosemide 40 mg tablet 40 mg PO QDAY PRN (Reason: Swelling) Qty: 90 RF: 3 metformin 500 mg tablet 500 mg PO BID Qty: 180 RF: 3 levothyroxine 100 mcg tablet 100 mcg PO DAILY Qty: 90 RF: 3 amoxicillin-pot clavulanate 875-125 mg tablet 1 tab PO BID Qty: 20 RF: 0 Primary Care Provider: Sheryl Kerr NP Referrals: Sheryl Kerr [employer], [employer] [Primary Care Provider] - 3-5 Days Disposition Disposition: Home, Self Care
--- NOTE | 2021-07-17 21:05 | RAD_ITS ---
INDICATION: chest pain EXAMINATION/TECHNIQUE: X-RAY - XR Chest 1 View COMPARISON: None. FINDINGS: The lungs are clear. The cardiomediastinal silhouette is unremarkable. No pleural effusion or pneumothorax. No acute osseous abnormalities. RAD/Chest 1 View (Portable) IMPRESSION: No acute radiographic abnormalities. Electronically Signed: Brian Waite MD at 21:51 EDT Tel , Service support ,
[2021-07-17 21:14] LABS: Absolute Lymphocyte Count 2.92 X10^3/uL (0.83-4.51); Basophil# 0.04 X10^3/uL; Basophil% 0.4 % (0-1); Eosinophil# 0.24 X10^3/uL; Eosinophils% 2.6 % (0-5); Hematocrit 45.7 % (40-54); Hemoglobin 14.9 g/dL (13.0-16.5); Lymphocyte # 2.92 X10^3/ul (0.83-4.51); Lymphocyte % 32.1 % (19-41); Mean Corp Hgb Conc 32.6 g/dL (32-36); Mean Corpuscular Hgb 29.1 pg (27.0-32.0); Mean Corpuscular Volume 89.3 fL (80-94); Mean Platelet Vol. 10.1 fl (6.2-12.0); Monocyte# 0.89 X10^3/uL; Monocyte% 9.8 % (0-10); NRBC Flagged by Analyzer 0 % (0-5); Neutrophil # 4.98 X10^3/uL (2.7-7.7); Neutrophil % 54.7 % (47-70); Platelet Count 212 K/mm3 (150-450); RBC Distribution Width CV 14.3 % (11.6-14.6); RBC Distribution Width SD 46.4 fl (35.1-43.9); Red Blood Count 5.12 M/mm3 (4.6-6.2); White Blood Count 9.1 K/mm3 (4.4-11.0)
[2021-07-17] MEDS: 0.9% Normal Saline 1,000 ML 150 ML IV (21:18)
[2021-07-17] MEDS: Aspirin 81 MG TAB.CHEW 324 MG PO (21:18)
[2021-07-17 21:24] VITALS: BP 148/90; PULSE 70; RESP 20; O2SAT 97
[2021-07-17 21:33] LABS: Anion Gap 4 (5-15); BUN 22 mg/dL (7-18); BUN/Creat Ratio 23.1 RATIO (10-20); Calcium,Total 9.6 mg/dL (8.5-10.1); Chloride 108 mmol/L (98-107); Creatinine, Serum 0.95 mg/dL (0.70-1.30); EST Glomerular Filtration Rate 90 mL/min (>60); Est Glom Filt Rate - Afr Amer 109 mL/min (>60); Estimated Creatinine Clearance 103.48 ml/min; Glucose 111 mg/dL (74-106); Potassium 3.8 mmol/L (3.5-5.1); Sodium Level 140 mmol/L (136-145); Troponin-I HS 6 pg/mL (3.0-78.0)
[2021-07-17 22:19] VITALS: BP 135/84; PULSE 66; RESP 16; O2SAT 99
== END 2021-07-17 22:20 | disposition home or self-care (01) ==
PROVIDERS: Emergency Provider Emergency Medicine; PCP Nurse Practitioner
DX: R07.9 Chest pain, unspecified (principal); I10 Essential (primary) hypertension; E78.5 Hyperlipidemia, unspecified; E03.9 Hypothyroidism, unspecified; F17.290 Nicotine dependence, other tobacco product, uncomplicated; Z79.899 Other long term (current) drug therapy
CPT/HCPCS: 71045; 80048; 84484; 85025; 93005; 96360; 99285; J7030

== ENCOUNTER 2022-01-11 21:27 | Outpatient (CLI) | payer BC, SELFPAY ==
[2022-01-11 21:38] LABS: Absolute Lymphocyte Count 2.78 X10^3/uL (0.83-4.51); Absolute Neutrophil Count 7.8 X10^3/uL (2.0-7.7); Basophil# 0.04 X10^3/uL; Basophil% 0.3 % (0-1); Eosinophil# 0.13 X10^3/uL; Eosinophils% 1.1 % (0-5); Hematocrit 45.3 % (40-54); Hemoglobin 15.2 g/dL (13.0-16.5); Lymphocyte # 2.78 X10^3/ul (0.83-4.51); Lymphocyte % 23.9 % (19-41); Mean Corp Hgb Conc 33.6 g/dL (32-36); Mean Corpuscular Hgb 29.3 pg (27.0-32.0); Mean Corpuscular Volume 87.5 fL (80-94); Mean Platelet Vol. 10.2 fl (6.2-12.0); Monocyte% 6.9 % (0-10); NRBC Flagged by Analyzer 0 % (0-5); Neutrophil # 7.83 X10^3/uL (2.7-7.7); Neutrophil % 67.3 % (47-70); Platelet Count 236 K/mm3 (150-450); RBC Distribution Width CV 14.1 % (11.6-14.6); RBC Distribution Width SD 44.9 fl (35.1-43.9); Red Blood Count 5.18 M/mm3 (4.6-6.2); White Blood Count 11.6 K/mm3 (4.4-11.0)
[2022-01-11 21:46] LABS: Uric Acid 5.1 mg/dL (3.5-7.2)
== END 2022-01-11 23:59 | disposition home or self-care (01) ==
PROVIDERS: PCP Nurse Practitioner; Visit Provider Nurse Practitioner
DX: M25.571 Pain in right ankle and joints of right foot (principal); M10.9 Gout, unspecified
CPT/HCPCS: 84550; 85025

== ENCOUNTER 2022-01-12 09:14 | Outpatient (CLI) | payer BC, SELFPAY ==
--- NOTE | 2022-01-12 09:26 | RAD_ITS ---
EXAM: XR RIGHT ANKLE COMPLETE, 3 OR MORE VIEWS : 1975 CLINICAL INDICATION: R ankle pain TECHNIQUE: Frontal, lateral and oblique views of the right ankle. This report was created using [employer] report generation technology. COMPARISON: None. FINDINGS: BONES/JOINTS: Unremarkable. No acute fracture. No subluxation. Normal alignment. Preservation of the joint space. No sclerotic or destructive changes observed. SOFT TISSUES: Unremarkable. No soft tissue swelling or gas. No radiopaque foreign body. RAD/Ankle min 3 Views IMPRESSION: Negative right ankle x-rays. at 1532 Reported and signed by: Andrew Zheng MD Electronically Signed: Andrew Zheng MD at 15:31 EDT ,
== END 2022-01-12 23:59 | disposition home or self-care (01) ==
LOC: RAD 09:15
PROVIDERS: PCP Nurse Practitioner; Referring Provider Nurse Practitioner; Visit Provider Nurse Practitioner
DX: M25.571 Pain in right ankle and joints of right foot (principal); M10.9 Gout, unspecified
CPT/HCPCS: 73610

== ENCOUNTER → 2022-08-04 | Outpatient (CLI) | payer BC, SELFPAY ==
[2022-08-04 22:03] LABS: Absolute Neutrophil Count 7.2 X10^3/uL (2.0-7.7); Basophil# 0.06 X10^3/uL; Basophil% 0.5 % (0-1); Eosinophil# 0.11 X10^3/uL; Hematocrit 45.7 % (40-54); Lymphocyte % 28.2 % (19-41); Mean Corp Hgb Conc 32.8 g/dL (32-36); Mean Corpuscular Hgb 29.1 pg (27.0-32.0); Mean Corpuscular Volume 88.6 fL (80-94); Mean Platelet Vol. 10.1 fl (6.2-12.0); Monocyte# 0.79 X10^3/uL; NRBC Flagged by Analyzer 0 % (0-5); Neutrophil # 7.15 X10^3/uL (2.7-7.7); Neutrophil % 62.9 % (47-70); Platelet Count 247 K/mm3 (150-450); RBC Distribution Width CV 14.2 % (11.6-14.6); RBC Distribution Width SD 45.9 fl (35.1-43.9); Red Blood Count 5.16 M/mm3 (4.6-6.2); White Blood Count 11.4 K/mm3 (4.4-11.0)
[2022-08-04 22:20] LABS: AST(SGOT) 21 U/L (15-37); Alanine Aminotransfer ALT/SGPT 39 U/L (16-61); Albumin, Serum 4.3 g/dL (3.2-5.0); Alkaline Phosphatase 79 U/L (45-117); BUN 27 mg/dL (7-18); Calcium,Total 9.7 mg/dL (8.5-10.1); Cholesterol 204 mg/dL (200); Creatinine, Serum 1.23 mg/dL (0.70-1.30); EST Glomerular Filtration Rate 67 mL/min (>60); Est Glom Filt Rate - Afr Amer 81 mL/min (>60); Globulin 4.1 g/dL (2.2-4.2); Glucose 106 mg/dL (74-106); Protein, Total 8.4 g/dL (6.4-8.2); Triglycerides 87 mg/dL
[2022-08-04 22:21] LABS: Anion Gap 9 (5-15); Chloride 107 mmol/L (98-107); High Density Lipoprotein 47 mg/dL; Potassium 3.7 mmol/L (3.5-5.1); Sodium Level 138 mmol/L (136-145); Thyroid Stim Hormone (TSH) 2.33 uIU/mL (0.358-3.74); Very Low Density Lipoprotein 17 mg/dL (5-40)
[2022-08-04 22:41] LABS: Hemoglobin A1c 5.6 % (3.8-5.6)
== END | disposition home or self-care (01) ==
PROVIDERS: PCP Nurse Practitioner; Visit Provider Nurse Practitioner
DX: I10 Essential (primary) hypertension (principal); E11.9 Type 2 diabetes mellitus without complications; E78.5 Hyperlipidemia, unspecified; E03.9 Hypothyroidism, unspecified
CPT/HCPCS: 80053; 80061; 83036; 84443; 85025

== ENCOUNTER → 2022-09-06 | Outpatient (CLI) | payer BC, SELFPAY ==
[2022-09-06 14:22] LABS: Amphetamine Urine VISTA NEGATIVE (<1000 ng/mL); Barbiturate Urine VISTA NEGATIVE (< 200 ng/mL); Benzodiazepine Urine VISTA NEGATIVE (< 200 ng/mL); Cocaine Urine VISTA NEGATIVE (< 300 ng/mL); Ecstacy Urine VISTA NEGATIVE (< 500 ng/mL); Methadone Urine VISTA NEGATIVE (< 300 ng/mL); PCP Urine VISTA NEGATIVE (< 25 ng/mL); THC Urine VISTA NEGATIVE (< 50 ng/mL); Vista UDS pH Range 6
== END | disposition home or self-care (01) ==
PROVIDERS: PCP Nurse Practitioner; Referring Provider Anesthesiology Pain Medicine; Visit Provider Anesthesiology Pain Medicine
DX: F11.20 Opioid dependence, uncomplicated (principal)
CPT/HCPCS: 80307

== ENCOUNTER 2022-09-27 12:00 | Outpatient (RCR) | payer BC, SELFPAY ==
--- NOTE | 2022-09-13 16:25 | HP.PTEVAL ---
Patient's Visit Information ALDO RIVERA is a 47 year old M referred to Physical Therapy by Dr. Law Rios MD with a diagnosis of LOW BACK PAIN. Date of Evaluation: 09/13/22 Physical Therapist: Yaya Wagner PT, Cert MDT, OCS - Visit Plan Frequency: 2x /Week Duration: 4 Weeks Plan: PT INTERVENTION SASHA EX'S .ANR STRETCHING ,PROGRESS TO POSTURAL EX'S ,DLS AND MODALTIES PRN - Subjective This 47 y/o male presents to physical therapy with low back pain. Patient has had back pain~ 20 years intermittent . Most recently developed episode pain unable to get OOB .Patient has occasional left leg pain. Initially, seen family DR recommended chiropractors did x-rays DDD ,then had MRI showed HNP .Then seen DR Bullock not bad enough too have surgery. Patient then was recommended pain management ,did epidural injection helped some. Patient was prescribed Vicodin. Pain management recommended. Also ,want to try aplasia. Patient pain left lumbar described knive and ache. Aggravating factors bending ,lifting, sitting ,standing . Alleviating rest some walking extension better. Coughing/sneezing +. Bowel/bladder -. Pain affects sleeping. Patient has no trauma. Patient pain affects QOL and function. SOCIAL: . VOACTION: [employer] - Pain Left Back Pain Intensity (Out of 10): 3 Pain Intensity Range: 10 - Objective POSTURE:WFL. NEURO: denies paresthesia/tingling ,reflexes L3-4,L4-5,L5-S1 2/3 ,+ ANR left. GAIT: reciprocal pattern. MMT: quads/hams 4/5 ,hip flexion left 4-/5 ,right 4/5 ,ankle 5/5. LUMBAR ROM: flexion mod /severe loss ,extension min loss ,side glides min loss. FLEXABLITY : mod loss left with + ANR left - Special Tests L/S Slump test left side: Positive L/S Slump test right side: Negative L/S Left Straight Leg Raise: Positive L/S Right Straight Leg Raise: Negative Lumbar Standing: Flexion - Mechanical Response: No effect Lumbar Standing: Flexion - Symptoms During Testing: Increases Lumbar Standing: Flexion - Symptoms After Testing: Worse Lumbar Standing: Extension - Mechanical Response: No effect Lumbar Standing: Extension - Symptoms During Testing: Decreases Lumbar Standing: Extension - Symptoms After Testing: Better Lumbar Standing: Right Side Glides - Mechanical Response: No effect Lumbar Standing: Right Side [place] - Symptoms During Testing: No effect Lumbar Standing: Right Side [place] - Symptoms After Testing: No effect Lumbar Standing: Left Side [place] - Mechanical Response: No effect Lumbar Standing: Left Side [place] - Symptoms During Testing: No effect Lumbar Standing: Left Side [place] - Symptoms After Testing: No effect Lumbar Lying: Flexion - Mechanical Response: No effect Lumbar Lying: Flexion - Symptoms During Testing: Increases Lumbar Lying: Flexion - Symptoms After Testing: Worse Lumbar Lying: Extension - Mechanical Response: No effect Lumbar Lying: Extension - Symptoms During Testing: Decreases Lumbar Lying: Extension - Symptoms After Testing: Better - Balance/Special Test Scores Oswestry Low Back Score: 30 - Goals Goal 1:: I with HEP for LBP Goal Time Frame: 4-6 Weeks Goal 2:: Patient to improve posture/body mechanics 90% of the time to manage back pain Goal Time Frame: 4-6 Weeks Goal 3:: Patient to demonstrate 50% improvement with decrease symptoms and improved function Goal Time Frame: 4-6 Weeks Goal 4:: Patient to improve lumbar ROM for function of recovery to lift appropriately Goal Time Frame: 4-6 Weeks Goal 5:: Patient to improve back oswestry score by 5 points or > to improve function Goal Time Frame: 4-6 Weeks Goal 6:: Resolve ANR to tie shoes for function of recovery Goal Time Frame: 4-6 Weeks - Rehabilitation Potential Physical Therapy Diagnosis: This patient has low back pain with derangement below knee with HNP worse with flexion ,sitting ,position ,movement testing influences symptoms better walking and extension thus benefit from skilled PT Rehabilitation Potential: Good - Anticipated Interventions Patient/Client Instruction: Educate patient on: Condition, Plan of Care For the Purpose of:: To decrease pain, To increase ROM, To improve muscle performance and motor function, To improve ability to perform ADL's, To increase tolerance to activity/condition/position, To improve ability of physical actions for home/community/work/leisure, To improve health of tissue, To decrease soft tissue restriction, To increase flexibility/ROM, To improve endurance, To prevent re-injury Therapeutic Exercise to Include: Strength training, Endurance training, Body mechanics, Postural training, Flexibilty training, Active ROM, Dynamic Lumbar Stabilization, Sasha Exercises For the Purpose of:: To decrease pain, To increase ROM, To improve muscle performance and motor function, To increase tolerance to activity/condition/position, To improve ability of physical actions for home/community/work/leisure, To improve health of tissue, To decrease soft tissue restriction, To increase flexibility/ROM, To prevent re-injury TENS: Yes IF ES: Yes Cryotherapy (ice pack, ice massage): Yes Thermo therapy (hot pack): Yes Ultrasound (thermal/non thermal): Yes For the Purpose of:: To decrease pain, To increase ROM, To improve nutrient delivery to tissue, To increase oxygenation perfusion, To improve muscle performance and motor function, To improve health of tissue, To decrease soft tissue restriction Thank you for the opportunity to evaluate your patient. For Medicare and Medicare HMO plans, please review the plan of care and approve it. It will need to be FAXED BACK to us at [phone] for Medicare purposes. For Medicare only, by signing this I certify the plan of care. Please let me know if there are questions or concerns regarding this plan of care. Physician Signature: Date:
--- NOTE | 2023-02-24 15:56 | HP.PT.NRP ---
ALDO RIVERA was seen in my office for initial evaluation on 09/13/22. The following Plan of Care was established for this patient: Initial Frequency: 2x /Week Initial Duration: 4 Weeks Patient/Client Instruction: Educate patient on: Condition, Plan of Care For the Purpose of:: To decrease pain, To increase ROM, To improve muscle performance and motor function, To improve ability to perform ADL's, To increase tolerance to activity/condition/position, To improve ability of physical actions for home/community/work/leisure, To improve health of tissue, To decrease soft tissue restriction, To increase flexibility/ROM, To improve endurance, To prevent re-injury Therapeutic Exercise to Include: Strength training, Endurance training, Body mechanics, Postural training, Flexibilty training, Active ROM, Dynamic Lumbar Stabilization, Bibiana Exercises For the Purpose of:: To decrease pain, To increase ROM, To improve muscle performance and motor function, To increase tolerance to activity/condition/position, To improve ability of physical actions for home/community/work/leisure, To improve health of tissue, To decrease soft tissue restriction, To increase flexibility/ROM, To prevent re-injury TENS: Yes IF ES: Yes Cryotherapy (ice pack, ice massage): Yes Thermo therapy (hot pack): Yes Ultrasound (thermal/non thermal): Yes For the Purpose of:: To decrease pain, To increase ROM, To improve nutrient delivery to tissue, To increase oxygenation perfusion, To improve muscle performance and motor function, To improve health of tissue, To decrease soft tissue restriction This patient was last seen in our office . Pertinent comments regarding their Physical therapy will appear below: This patient seen for PT for back pain for DLS and postural ex's for only 3 visits At this point I will be discontinuing this patient from physical therapy. I would be happy to see this patient again in the future if found appropriate by the physician. Thank you! Yaya Wagner, PT, Cert MDT, OCS Balance/Gait/Functional tests - Balance/Special Test Scores Oswestry Low Back Score: 30
== END 2022-09-27 19:00 | disposition home or self-care (01) ==
LOC: PT 12:00
PROVIDERS: PCP Nurse Practitioner; Referring Provider Anesthesiology Pain Medicine; Visit Provider Anesthesiology Pain Medicine
DX: M54.50 Low back pain, unspecified (principal)
CPT/HCPCS: 97014; 97035; 97110; 97161; G0283

== ENCOUNTER 2023-01-17 07:08 | Day surgery (SDC) | payer BC, SELFPAY ==
[2023-01-14 08:20] VITALS: BMI 46.7
--- NOTE | 2023-01-16 20:48 | PCM.HP.BLA ---
History and Physical Date of Admission: 01/17/23 ALDO RIVERA, is a 47 M who presents to the [facility] today for a Loop Recorder removal.?He has a history of palpitations, diabetes, GERD, obstructive sleep apnea diagnosed on 03/17/2016 with compliant CPAP therapy, gout, hypertension, and thyroid disease. He underwent a ILR placement on 04/16/2019 d/t no palpitations being noted on his 30 day monitor. He has been compliant with sending in his remote checks on his ILR. He was seen in office to discuss loop recorder removal.? Reviewed all remote interrogations that were sent in.? In 2019 he did have one short episode of PAF. He has stopped his diltiazem. From a cardiac standpoint, patient is doing well.? He does not have any chest discomfort/heaviness/tightness.? His exercise tolerance is stable for his age.? He does not have any worsening symptoms of shortness of breath.? He denies any PND.? He does not have any orthopnea.? He does not have any symptoms of congestive heart failure.? He does not have any palpitations that he is aware of.? He does not have any lightheadedness or dizziness.? He does not have any near-syncope or syncope.? He does not have any lower extremity edema. He uses his lasix approx once a month for edema.? He does not have any symptoms of claudication. ? Intake Vital Signs: See EMR Visit Reasons:?ILR REMOVAL Level Vial Curvature Gauger Required: No Is patient in pain?: No Allergies Iodinated Contrast Media [iodine contrast] Allergy (Severe, Verified 12/13/22 09:18) NEEDS FOLLOW-UPalprazolam [From Xanax] Allergy (Intermediate, Verified 12/13/22 09:18) depression mood changesiv contrast Allergy (Severe, Uncoded 12/13/22 09:18) Anaphylaxis Medications See EMR [facility] Medical History?(Updated 12/13/22 @ 09:46 by Karie CHANG, PA) Dyspnea on exertion GERD (gastroesophageal reflux disease) Gout HLD (hyperlipidemia) HTN (hypertension) Hypothyroidism Migraine headache without aura Migraine without aura Nausea Obstructive sleep apnea Palpitations Polyp of esophagus Surgical History? Polyp of colon Status post placement of implantable loop recorder (04/16/19) Family History? Uncle Aneurysm ?? ? cousinsMother AneurysmOther Colon cancer Social History? Smoking Status:? Current every day smoker tobacco type: smokeless tobacco alcohol intake:? never substance use type:? does not use caffeine:? Yes Type: tea Number of servings: 1 ROS Const Const: Negative for fatigue, weakness, headache(s), frequent falls, excessive sweating, weight gain or weight loss Eyes Eyes: Negative for blind spots, loss of peripheral vision, transient loss of vision, blurry vision, change in vision or double vision ENT ENT: Negative for headache(s), dizziness, tinnitus, Nosebleed/epistaxis or balance problems Cardio Chest Pain: No Palpitations: No Edema: None Muscle aches with walking: None Resp Respiratory: Negative for SOB with activity, SOB at rest, SOB orthopnea\SOB lying down or Cough GI GI: Negative nausea, vomiting, heartburn, bloating, vomiting blood/hematemesis, bright, red blood in stools or black,tarry stools : Negative for hematuria Musc Musc: Negative for muscle aches/ myalgia, muscle weakness, joint pain or balance problems Skin Skin: Negative rash or wounds Neuro Neuro: Negative for dizziness, lightheadedness, near syncope, syncope, orthostatic symptoms, frequent falls, headache(s), weakness, confusion, memory loss, restless legs, blurry vision or double vision [place] Hematologic/Lymphatic: Negative for easy bleeding or easy bruising Endo Endo: Negative for fatigue, cold intolerance, heat intolerance or excessive sweating Psych Psych: Negative for anxiety or depression Allergy Allergy/Immunology: Negative for rash Cardiology Exam Const Appearance: cooperative, healthy appearing, comfortable, no acute distress and well developed Nutritional Appearance: obese Orientation: alert, awake and oriented x3 Head Head: normal to inspection Ears: hearing grossly normal bilaterally Nose: external nose normal Face and Sinus: face symmetric Mouth: oral mucosae normal, lip normal and moist mucous membranes Eyes General: appearance normal, both eyes and all related structures Eyelids: eyelids normal Conjunctivae: conjunctivae normal Pupils: PERRL EOM: EOM intact bilaterally Neck Neck: normal visual inspection and trachea midline; Negative no JVD Carotids: Negative bruit Chest Chest inspection: normal inspection of the chest Auscultation: Bilateral: Clear to Auscultation Cardio Palpation: normal PMI Rate: regular rate Rhythm: regular rhythm Heart sounds: S1 normal and S2 normal; Negative rub, gallop or murmur GI GI: soft, no hepatosplenomegaly, bowel sounds present and obese Neuro General: patient alert, patient awake, patient oriented x3 and CN's II-XI intact bilaterally Extremities Pulses: Normal: Right Posterior Tibial Pulse, Left Posterior Tibial Pulse, Right Radial Pulse and Left Radial Pulse Lower Extremity Edema: None: Bilateral Psych Psychological: normal affect Supplemental Info Supplemental Information Assessment and Plan Assessment and Plan (1) Status post placement of implantable loop recorder: ?Status:?Chronic ?Comment: [facility] Loop Recorder - Marker Machine: [employer], Model # Reveal LINQ [id number] , Serial # [id number] Per Dr. Alvarez @ [facility] ?Plan: Patient has not had any further palpitations.? He would like to have his loop recorder removed.? He will proceed with loop recorder removal. (2) Palpitations: ?Status:?Chronic We will continue to monitor.
--- NOTE | 2023-01-17 08:35 | CL.IE_ITS ---
Patient: ALDO RIVERA Study Date: 01/17/2023 Performing: Giancarlo Alvarez MD : [id number] Age: 47 Gender: male PROCEDURES PERFORMED [id number])REMOVAL OF LOOP RECORDER INDICATIONS palpitations PROCEDURE DETAILS The patient was brought to the Catheterization Lab in the postabsorptive nonsedated state. Informed consent was obtained prior to the procedure. Local anesthetic was given subcutaneously to the left upper chest area with Lidocaine 2%. Incision was made to the left upper chest. ICM Loop Recorder was removed. Instrument, sponge, and needle counts were noted to be normal. The patient tolerated the procedure well. Estimated Blood Loss: 5 ml's IMPLANTED / EX-PLANTED DEVICES DEVICE PARAMETERS CONCLUSIONS / RECOMMENDATIONS Device Conclusions: successful removal of loop recorder Device Recommendations: Follow up with Primary Care Physician PROCEDURE MEDICATIONS Versed 1 mg IV Versed 1 mg IV Ancef 2 Gm IV @ 01/17/2023 08:13:07 Signed By Giancarlo Alvarez MD On 01/17/2023 08:34:51 Giancarlo Alvarez MD
== END 2023-01-17 09:30 | disposition home or self-care (01) ==
LOC: CLSP 07:10
PROVIDERS: PCP Nurse Practitioner; Referring Provider Internal Medicine Cardiovascular Disease; Visit Provider Internal Medicine Cardiovascular Disease
DX: Z45.09 Encounter for adjustment and management of other cardiac device (principal); E11.9 Type 2 diabetes mellitus without complications; R00.2 Palpitations; G47.33 Obstructive sleep apnea (adult) (pediatric); I10 Essential (primary) hypertension; E03.9 Hypothyroidism, unspecified; F17.220 Nicotine dependence, chewing tobacco, uncomplicated; Z79.85 Long-term (current) use of injectable non-insulin antidiabetic drugs; Z79.899 Other long term (current) drug therapy
CPT/HCPCS: 33286; 99152; J7040

== ENCOUNTER → 2023-10-10 | Outpatient (CLI) | payer BC, SELFPAY ==
[2023-10-10 21:40] LABS: Basophil# 0.07 X10^3/uL; Basophil% 0.7 % (0-1); Eosinophil# 0.16 X10^3/uL; Eosinophils% 1.7 % (0-5); Hematocrit 47.6 % (40-54); Lymphocyte % 26.5 % (19-41); Mean Corp Hgb Conc 31.5 g/dL (32-36); Mean Corpuscular Hgb 27.7 pg (27.0-32.0); Mean Platelet Vol. 10.2 fl (6.2-12.0); Monocyte# 0.67 X10^3/uL; Monocyte% 7.1 % (0-10); NRBC Flagged by Analyzer 0 % (0-5); Neutrophil # 5.97 X10^3/uL (2.7-7.7); Neutrophil % 63.5 % (47-70); Platelet Count 226 K/mm3 (150-450); RBC Distribution Width CV 13.8 % (11.6-14.6); RBC Distribution Width SD 43.8 fl (35.1-43.9); Red Blood Count 5.41 M/mm3 (4.6-6.2); White Blood Count 9.4 K/mm3 (4.4-11.0)
[2023-10-10 21:59] LABS: ALB/GLOB Ratio 0.9 RATIO (0.9-2.4); AST(SGOT) 21 U/L (15-37); Alanine Aminotransfer ALT/SGPT 30 U/L (16-61); Albumin, Serum 3.8 g/dL (3.2-5.0); Alkaline Phosphatase 72 U/L (45-117); Anion Gap 4 (5-15); BUN 18 mg/dL (7-18); BUN/Creat Ratio 19.5 RATIO (10-20); Calcium,Total 9.6 mg/dL (8.5-10.1); Chloride 104 mmol/L (98-107); Cholesterol 189 mg/dL (200); Creatinine, Serum 0.92 mg/dL (0.70-1.30); EST Glomerular Filtration Rate 93 mL/min (>60); Est Glom Filt Rate - Afr Amer 112 mL/min (>60); Globulin 4.1 g/dL (2.2-4.2); Glucose 100 mg/dL (74-106); High Density Lipoprotein 43 mg/dL; Potassium 4.1 mmol/L (3.5-5.1); Protein, Total 7.9 g/dL (6.4-8.2); Sodium Level 139 mmol/L (136-145); Thyroid Stim Hormone (TSH) 2.83 uIU/mL (0.358-3.74); Triglycerides 125 mg/dL; Very Low Density Lipoprotein 25 mg/dL (5-40)
[2023-10-10 22:01] LABS: Hemoglobin A1c 5.8 % (3.8-5.6)
== END | disposition home or self-care (01) ==
PROVIDERS: PCP Nurse Practitioner; Visit Provider Nurse Practitioner
DX: E66.01 Morbid (severe) obesity due to excess calories (principal); R73.9 Hyperglycemia, unspecified; E78.5 Hyperlipidemia, unspecified; I10 Essential (primary) hypertension; E03.9 Hypothyroidism, unspecified
CPT/HCPCS: 80053; 80061; 83036; 84443; 85025